=== PATIENT | female | born 1995 | race Caucasian/White ===

== ENCOUNTER 2018-01-18 02:40 | Emergency (ER) | payer OTHER, MEDICAID ==
[~2018-01-18] VITALS: Ht 162.6 cm; Wt 63.2 kg
[~2018-01-18 02:40] MED LIST: BG MC; CIPRO500 MG PO; HUMULIN R100 U/1 M1 SC; TYL325 PO
[2018-01-18 03:00] VITALS: Ht 162.6 cm; Wt 63.2 kg
[2018-01-18 04:04] LABS: BASOPHIL % 0.4 % (0-2); PLATELET COUNT 206 x10^3mcL (130-400); RED CELL DISTRIBUTION WIDTH 12.6 % (11.5-14.5)
[2018-01-18 04:05] LABS: CALCIUM 8.2 mg/dL (8.5-10.1); CARBON DIOXIDE 21.9 mmol/L (21-32); CHLORIDE SERUM 98 mmol/L (98-107); GFR1 > 60 mL/min; GLUCOSE SERUM 338 mg/dL (74-106); POTASSIUM SERUM 4.2 mmol/L (3.5-5.1); SODIUM SERUM 132 mmol/L (136-145)
[2018-01-18 04:11] LABS: ALBUMIN 3.8 g/dL (3.4-5.0); ALKALINE PHOSPHATASE 88 U/L (46-116); ALT/SGPT 14 U/L (14-59); AST/SGOT 15 U/L (15-37); TOTAL PROTEIN, SERUM 6.8 g/dL (6.4-8.2)
[2018-01-18 05:49] VITALS: BP 101/58
== END 2018-01-18 05:49 | disposition home or self-care (01) ==
LOC: ED 02:40
PROVIDERS: Emergency Medicine
DX: N94.6 Dysmenorrhea, unspecified (principal); R07.89 Other chest pain; E11.65 Type 2 diabetes mellitus with hyperglycemia
CPT/HCPCS: 82962; J1885; J7030

== ENCOUNTER 2020-03-31 10:58 | Emergency (ER) | payer MEDICAID ==
[~2020-03-31] VITALS: Ht 162.6 cm; Wt 63.0 kg
[2020-03-31 11:04] VITALS: Ht 162.6 cm; Wt 63.0 kg
[2020-03-31 12:52] VITALS: BP 109/71
== END 2020-03-31 12:52 | disposition home or self-care (01) ==
LOC: ED 10:58
DX: J02.0 Streptococcal pharyngitis (principal); E11.9 Type 2 diabetes mellitus without complications

== ENCOUNTER 2020-09-17 10:35 | Emergency (ER) | payer MEDICAID ==
[~2020-09-17] VITALS: Ht 162.6 cm; Wt 63.5 kg
[2020-09-17 10:38] VITALS: Ht 162.6 cm; Wt 63.5 kg
[2020-09-17 11:47] VITALS: BP 103/66
== END 2020-09-17 11:47 | disposition home or self-care (01) ==
LOC: ED 10:35
DX: H65.93 Unspecified nonsuppurative otitis media, bilateral (principal)